=== PATIENT | female | born 1935 | race Hispanic/Latino ===

== ENCOUNTER 2018-12-20 10:30 | Day surgery (SDC) | payer MEDICARE ==
[2018-12-20 14:31] VITALS: BMI 32.9
[2018-12-20] MEDS ORDERED: Midazolam 2 MG/2 ML VIAL ONE (16:20)
[2018-12-20] MEDS ORDERED: Propofol 10 mg/ml Inj (20 ML) ONE ×2 (16:21)
[2018-12-20] MEDS ORDERED: Lidocaine Hydrochloride 5 ML INJ ONE (16:41)
[2018-12-20] MEDS ORDERED: Lactated Ringer's 1,000 ML IV ONE (16:54)
[2018-12-20] MEDS ORDERED: HYDROmorphone 0.5 mg/0.5 ml ISec IVP PRN (17:21)
[2018-12-20] MEDS ORDERED: Lactated Ringer's 1,000 ML IV SCH (17:30)
[2018-12-20 17:32] VITALS: PULSE 66
[2018-12-20 18:01] VITALS: RESP 16; TEMP 97.9; O2SAT 97
[2018-12-20 18:22] VITALS: BP 138/73
--- NOTE | 2018-12-21 02:21 | OP ---
PROCEDURE DATE: 12/20/2018 PREOPERATIVE DIAGNOSIS: Thickened endometrial lining on ultrasound. POSTOPERATIVE DIAGNOSES: Thickened endometrial lining on ultrasound and increased abdominal distention. PROCEDURE PERFORMED: Hysteroscopic myomectomy, dilatation and curettage. ANESTHESIA: General LMA. SURGEON: Leonor Maldonado MD HOMOEOPATH: None. ESTIMATED BLOOD LOSS: 5 mL. BLOOD PRODUCTS: None. COMPLICATIONS: None. SPECIMENS: Endocervical curettings, endometrial curettings, submucosal myoma. OPERATIVE FINDINGS: A 6-week size anteverted uterus, cervical stenosis, uterus sounded 6 cm. Following this, bilateral ostia were visualized with myoma type lesion projecting into endometrium near right , careful dissection using MyoSure device. Good hemostasis noted. FLUID DEFICIT: 200 mL. DESCRIPTION OF PROCEDURE: The patient was taken to the operating room where she was given general anesthesia. Once it was found to be adequate, she was placed on the operating table in dorsal supine position with legs supported using stirrups. The patient was then prepped and draped in the usual sterile fashion. A time-out was performed confirmed correct patient and correct procedure. Bimanual exam was performed with the above-mentioned findings. A Garza retractor was placed in the anterior and posterior fornix of the vagina. Cervix was adequately visualized. A single-tooth tenaculum was placed in the anterior lip of the cervix. Endocervical curettings were obtained anteriorly with a Kevorkian curette. The uterus was then sounded to 7 cm. Cervix was sequentially dilated to allow for introduction of the hysteroscope under direct visualization using normal saline as the distention media. Ostia were visualized and the mass noted, carefully dissected with the MyoSure device. Hysteroscope was removed. Gentle curettage was done. MyoSure was then re-inserted. There was good hemostasis noted. All instruments were removed. There was good hemostasis noted at the tenaculum puncture site. At the end of the procedure, all needle, sponge and instrument counts were noted and correct x2. The patient tolerated the procedure well and was transferred to the recovery room in stable condition. Leonor Maldonado MD [facility] # [id number]
== END 2018-12-20 18:35 | disposition home or self-care (01) ==
LOC: C.SDS 10:30
PROVIDERS: ATTEND Obstetrics & Gynecology
DX: N85.9 Noninflammatory disorder of uterus, unspecified (principal); R14.0 Abdominal distension (gaseous); D25.9 Leiomyoma of uterus, unspecified
CPT/HCPCS: 58561; 88305; J2250; J2704; J3010; J7120